=== PATIENT | male | born 2000 | race Hispanic/Latino ===

== ENCOUNTER 2024-07-22 17:23 | Emergency (ER) | payer OTHER ==
[~2024-07-22] VITALS: Ht 172.7 cm; Wt 58.0 kg
[2024-07-22 17:30] VITALS: BP 141/84
[2024-07-22] MEDS ORDERED: ORPHENADRINE CITRATE 30 MG/ML AMP IV ONE (17:30)
[2024-07-22] MEDS ORDERED: KETOROLAC TROMETHAMINE 30 MG/ML SDV IV ONE (17:30)
[2024-07-22 18:01] VITALS: BP 123/74
[2024-07-22 18:05] LABS: BASO% 0.2 % (0-3); EOS% 0.9 % (0-8); HEMOGLOBIN 15.4 g/dl (14.0-18.0); IMMATURE GRANULOCYTES 0.1 % (0.0-5.0); LYMPH% 57.3 % (15-41); MEAN CELL VOLUME 84.2 fL CALC (80.0-100.0); MEAN CORPUSCULAR HGB 28.2 pG CALC (26.0-32.0); MEAN CORPUSCULAR HGB CONC 33.5 g/dL CAL (32.0-36.0); MONO% 6.8 % (2-13); NEUT# 2.8 thou/uL (1.82-7.42); NEUT% 34.7 % (42-76); RED BLOOD COUNT 5.46 mill/uL (4.70-6.10); RED CELL DISTRI WIDTH 12.8 % (11.5-15.5)
[2024-07-22 18:16] LABS: BILIRUBIN, TOTAL 0.8 mg/dL (0.2-1.3); POTASSIUM 3.9 mmol/l (3.5-5.1); TOTAL PROTEIN 7.7 g/dL (6.3-8.2)
[2024-07-22 18:21] LABS: CREATININE 0.9 mg/dL (0.7-1.3)
[2024-07-22 18:31] VITALS: BP 121/72
[2024-07-22 19:00] VITALS: BP 114/75
[2024-07-22 19:30] VITALS: BP 109/62
[2024-07-22 19:37] LABS: URINE BILIRUBIN - DIPSTICK Negative (NEGATIVE); URINE BLOOD DIPSTICK Negative (NEGATIVE); URINE CLARITY Clear; URINE COLOR Yellow; URINE GLUCOSE - DIPSTICK Negative (NEGATIVE); URINE KETONE Negative (NEGATIVE); URINE LEUK ESTERASE Negative (Negative); URINE NITRITE - DIPSTICK Negative (Negative); URINE PROTEIN - DIPSTICK Negative (NEG-TRACE); URINE SPECIFIC GRAVITY 1.015; URINE UROBILINOGEN - DIPSTICK 0.2 E.U./dL (0.2)
[2024-07-22 20:49] VITALS: BP 109/62
== END 2024-07-22 20:49 | disposition left against medical advice (07) | DRG 914 ==
LOC: ED 17:23
PROVIDERS: Nurse Practitioner
DX: S09.90XA Unspecified injury of head, initial encounter (principal); S43.401A Unspecified sprain of right shoulder joint, initial encounter; V43.52XA Car driver injured in collision with other type car in traffic accident, initial encounter; Z53.29 Procedure and treatment not carried out because of patient's decision for other reasons
CPT/HCPCS: J2360